=== PATIENT | female | born 1990 | race American Indian/Alaskan Native ===

== ENCOUNTER 2017-06-24 10:47 | Inpatient (IN) | payer MEDICAID ==
[2017-06-24] MEDS ORDERED: SUBLIMAZE IV PRN (11:26)
[2017-06-24] MEDS ORDERED: BRETHINE SUB-Q PRN (11:26)
[2017-06-24] MEDS ORDERED: XYLOCAINE 2% INFILTRATI ONE (11:26)
[2017-06-24] MEDS ORDERED: ePHEDrine SULFATE IV PRN (11:26)
[2017-06-24] MEDS ORDERED: POLYCILLIN/NS 2 GM/100 ML 2 GM/100 ML BAG IV ONE (11:26)
--- NOTE | 2017-06-24 11:35 | History and Physical Report ---
History of Present Illness Date of examination: 06/24/17 Date of admission: 06/24/17 Chief complaint: Active labor History of present illness: 26 year old presents at term in active labor. Patient denies leaking of fluid or vaginal bleeding. Patient reports active movement. Patient is GBS positive. Past History Past Medical History: other (anemia during (patient has been on iron supplements)) Past Surgical History: no surgical history [employer]CH[employer]ICIAN History: abnormal PAP smear (ASCUS, + HPV) Family/Genetic History: none Social history: lives with family. denies: smoking, alcohol abuse, prescription drug abuse, IV drug use - Obstetrical History Expected Date of Delivery: 07/03/17 Actual Gestation: 38 Week(s) 5 Day(s) : 3 Para: 2 Hx # Term Pregnancies: 3 Number of Pregnancies: 0 Spontaneous Abortions: 0 Induced : 0 Number of Living Children: 2 Medications and Allergies Allergies Allergy/AdvReac Type Severity Reaction Status Date / Time No Known Allergies Allergy Unverified 04/10/17 12:42 Home Medications Medication Instructions Recorded Confirmed Last Taken Type Pnv No.95/Ferrous Fum/Folic AC 325 tab PO BID 04/10/17 04/10/17 1 Day Ago History [ [place]] ~04/09/17 Active Meds: Active Medications Ephedrine Sulfate (Ephedrine Sulfate) 10 mg IV Q2M PRN PRN Reason: Hypotension Fentanyl (Sublimaze) 100 mcg IV Q2H PRN PRN Reason: Labor Pain Ampicillin Sodium (Polycillin/Ns 2 Gm/100 Ml) 2 gm in 100 mls @ 100 mls/hr IV ONCE ONE PRN Reason: Protocol Stop: 06/24/17 12:25 Lactated Ringer's (Lactated Ringers) 1,000 mls @ 125 mls/hr IV DIRECT ISIDRA Oxytocin/Sodium Chloride (Pitocin/Ns 20 Unit/1000ml Drip) 20 units in 1,000 mls @ 125 mls/hr IV DIRECT ISIDRA Lidocaine (Xylocaine 2%) 20 ml INFILTRATI ONCE ONE Stop: 06/24/17 11:27 Terbutaline Sulfate (Brethine) 0.25 mg SUB-Q ONCE PRN PRN Reason: Hyperstimulation/Hypertonicity Review of Systems All systems: negative (contractions) - Vital Signs Vital signs: Vital Signs Pulse BP 75 121/70 06/24/17 11:02 12/09/17 11:02 Temp Pulse Resp BP Pulse Ox 98.7 F 75 18 121/70 06/24/17 11:19 06/24/17 11:02 06/24/17 11:19 06/24/17 11:02 - Physical Exam Cardiovascular: Regular rate, Normal S1, Normal S2 Lungs: Positive: Clear to auscultation Abdomen: Positive: normal appearance, soft. Negative: distention, tenderness, guarding, rigidity Genitourinary (Female): Positive: normal external genitalia (no lesions seen on careful exam with bright light upon admission). Negative: perineal/vulvar lesions Vagina: Positive: normal moisture Uterus: Positive: enlarged Anus/Rectum: Positive: normal perianal skin Extremities: Positive: normal. Negative: tenderness, edema - Obstetrical FHR: category 1 Uterine Contraction Monitor Mode: External Uterine Contraction Pattern: Regular Uterine Contraction Intensity: Moderate Results Result Diagrams: 06/24/17 12:00 All other labs normal. Assessment and Plan A: at 38 weeks, 5 days gestation. Active labor. GBS positive. P: Admit. Ampicillin for GBS prophylaxis. Anticipate .
[2017-06-24] MEDS ORDERED: PITOCin/NS 20 UNIT/1000ML DRIP 20 UNITS/1,000 ML BAG IV SCH (12:00)
[2017-06-24] MEDS: LACTATED RINGERS 1,000 ML IV SCH ×2 (12:10→12:22)
[2017-06-24 12:40] LABS: Hematocrit 36.1 % (30.3-42.9); Hemoglobin 12.5 gm/dl (10.1-14.3); Mean Corpuscular HGB Conc 35 % (30-34); Mean Corpuscular Hemoglobin 30 pg (28-32); Mean Corpuscular Volume 87 fl (79-97); Platelet Count 213 K/mm3 (140-440); Red Blood Count 4.15 M/mm3 (3.65-5.03); Red Cell Distribution Width 14.4 % (13.2-15.2); White Blood Count 8.8 K/mm3 (4.5-11.0)
[2017-06-24] MEDS ORDERED: NARCAN 2 MG/2 ML IV PRN (13:58)
--- NOTE | 2017-06-24 13:58 | Anesthesia Consultation ---
Anesthesia Consult and Med Hx Date of service: 06/24/17 - Airway Anesthetic Teeth Evaluation: Good ROM Head & Neck: Adequate Mental/Hyoid Distance: Adequate Intubation Access Assessment: Probably Good - Pre-Operative Health Status ASA Pre-Surgery Classification: ASA2, Emergency Proposed Anesthetic Plan: Epidural, Spinal - Pulmonary Hx Asthma: No COPD: No Hx Pneumonia: No - Cardiovascular System Hx Hypertension: No - Central Nervous System Hx Seizures: No Hx Psychiatric Problems: No - Endocrine Hx Renal Disease: No Hx End Stage Renal Disease: No Hx Hypothyroidism: No Hx Hyperthyroidism: No - Hematic Hx Anemia: No Hx Sickle Cell Disease: No - Other Systems Hx Alcohol Use: No
[2017-06-24] MEDS ORDERED: fentaNYL-BUPIV 2 MCG/ML-0.125% 200 MCG/100 ML BAG EPIDURAL ONE (13:59)
[2017-06-24] MEDS: fentaNYL-BUPIV 2 MCG/ML-0.125% 200 MCG/100 ML BAG EPIDURAL SCH ×2 (14:20→14:50)
[2017-06-24] MEDS ORDERED: NORCO 5/325 PO PRN (14:55)
[2017-06-24] MEDS ORDERED: TUCKS PAD TP PRN (14:55)
[2017-06-24] MEDS ORDERED: MILK OF MAGNESIA PO PRN (14:55)
[2017-06-24] MEDS ORDERED: SODIUM CHLORIDE FLUSH SYRINGE 10 ML IV NR (15:00)
--- NOTE | 2017-06-24 15:03 | Procedure Note ---
OB Delivery Note - Delivery Date of Delivery: 06/24/17 Surgeon: ANALILIA ALVAREZ - Vaginal Delivery presentation: vertex Delivery position: OP Intrapartum events: none Delivery induction: none Delivery monitor: external FHT, external uterine Route of delivery: Delivery placenta: spontaneous Delivery cord: 3 umbilical vessels Episiotomy: none Delivery laceration: none Anesthesia: epidural Delivery comments: Spontaneous vaginal delivery of liveborn male infant weighing 6 lbs. 11 oz. over intact perineum with apgars of 8/9. Epidural anesthesia. Baby delivered easily and without difficulty. Thin meconium stained amniotic fluid. 3 vessel cord double clamped and cut and baby taken to radiant warmer and NICU team for suctioning due to meconium. Spontaneous cry and respirations. Cord blood obtained. Spontaneous delivery of intact placenta and membranes by ordoñez mechanism. EBL 250 ml. Pitocin to IV fluids after delivery of placenta. Fundus firm and midline. Vaginal sweep negative. No lacerations of vulva or perineum or vagina noted. Sponge count correct. Mother and baby stable in birthing room.
[2017-06-24] MEDS ORDERED: POLYCILLIN/NS 1 GM/50 ML 1 GM/50 ML BAG IV SCH (15:30)
[2017-06-24] MEDS: MOTRIN PO SCH ×2 (17:30→23:43)
[2017-06-24] MEDS ORDERED: PHENERGAN PO ONE (18:00)
[2017-06-25] MEDS: MOTRIN PO SCH ×4 (05:04→23:38)
[2017-06-25 05:49] LABS: Hematocrit 34.6 % (30.3-42.9); Hemoglobin 11.9 gm/dl (10.1-14.3)
--- NOTE | 2017-06-25 12:23 | Progress Note ---
Assessment and Plan A: day 1 S/P liveborn male infant. Anemia. P: Supplement with iron. Anticipate discharge to home tomorrow AM. Discussed with patient in detail discharge instructions and warning signs. Advised patient to continue the vitamins and iron she has at home. Advised pt. to avoid driving, avoid lifting and housework and avoid IC. Advised pt. to follow up at [facility]. Pt. voiced understanding of the above instructions. Subjective - Subjective Date of service: 06/25/17 Principal diagnosis: day 1 S/P spontaneous vaginal delivery Interval history: day 1 S/P spontaneous vaginal delivery of liveborn male . Patient states she is doing well. She reports small amount of lochia with no large clots. She is voiding without difficulty and ambulating well. She is tolerating a regular diet without nausea or vomiting. Patient denies headache, cough, shortness of breath, chest pain, abdominal pain, nausea or vomiting, leg pain, heavy vaginal bleeding, symptoms of depression, or any other problems. Patient wants to use Depo Provera for contraception on day of discharge. Patient reports: appetite normal, voiding normally, pain well controlled, flatus , ambulating normally : doing well Objective - Vital Signs Latest vital signs: Vital Signs Temp Pulse Resp BP BP Pulse Ox 06/25/17 08:08 98.7 F 85 18 110/74 99 06/25/17 00:54 69 115/66 97 06/25/17 00:00 98.1 F 67 18 115/66 96 06/24/17 20:20 98.4 F 71 18 116/64 98 06/24/17 16:00 98.5 F 18 116/69 06/24/17 15:32 82 130/73 06/24/17 15:18 88 135/74 06/24/17 15:03 96 H 133/60 06/24/17 14:57 86 100 06/24/17 14:56 88 127/60 06/24/17 14:44 92 H 101/54 06/24/17 14:28 106 H 158/66 06/24/17 14:26 103 H 168/100 06/24/17 14:24 103 H 122/82 06/24/17 14:22 88 118/79 06/24/17 14:20 73 127/73 06/24/17 14:18 88 126/74 06/24/17 14:16 83 123/78 06/24/17 14:14 89 119/79 06/24/17 14:12 96 H 124/73 06/24/17 14:11 87 120/69 06/24/17 14:08 93 H 113/57 06/24/17 14:06 90 111/57 06/24/17 14:04 90 120/63 06/24/17 14:02 85 117/60 06/24/17 14:00 81 120/64 06/24/17 13:59 69 78 L 06/24/17 13:58 89 119/65 06/24/17 13:56 83 120/64 06/24/17 13:53 81 117/64 100 06/24/17 13:50 61 31 L 06/24/17 13:49 92 H 100 06/24/17 13:44 93 H 100 06/24/17 13:39 105 H 100 06/24/17 13:38 109 H 149/72 06/24/17 12:49 18 Intake and Output 06/24/17 06/25/17 06/25/17 23:59 07:59 15:59 Intake Total 240 480 Output Total 750 300 Balance -510 180 Intake: Oral 240 480 Output: Urine 400 300 Void 400 300 Emesis 350 Other: Total, Intake Amount 240 240 Total, Output Amount 400 300 # Voids Void 1 1 - Exam Cardiovascular: Present: Regular rate, Normal S1, Normal S2 Lungs: Present: Clear to auscultation Abdomen: Present: normal appearance, soft, normal bowel sounds. Absent: distention, tenderness, guarding, rigidity Uterus: Present: firm, fundal height below umbilicus. Absent: bogginess, tenderness Extremities: Present: normal. Absent: tenderness, edema - Labs Labs: Abnormal lab results 06/24/17 Range/Units 12:00 MCHC 35 H (30-34) %
--- NOTE | 2017-06-25 12:39 | Discharge Summary ---
Providers - Providers Date of Admission: 06/24/17 12:04 Date of discharge: 06/26/17 Attending physician: TERRANCE WALKER MD None Primary care physician: TERRANCE WALKER MD Hospitalization Reason for admission: active labor Delivery: Episiotomy: none Laceration: none Other procedures: none complications: none Discharge diagnosis: IUP at term delivered baby: male Pertinent studies: Labs Hospital course: Normal hospital course. Condition at discharge: Good Disposition: DC-01 TO HOME OR SELFCARE Plan - Provider Discharge Summary Activity: routine, no sex for 6 weeks, no heavy lifting 4 weeks, no strenuous exercise Diet: routine Instructions: routine Additional instructions: Call your doctor immediately for: * Fever > 100.5 * Heavy vaginal bleeding ( >1 pad per hour) * Severe persistent headache * Shortness of breath * Reddened, hot, painful area to leg or breast - Follow up plan Follow up: TERRANCE WALKER MD [Primary Care Provider] - 6 Weeks
[2017-06-25] MEDS ORDERED: DEPO-PROVERA (CONTRACEPTION) IM ONE (13:35)
[2017-06-26] MEDS: MOTRIN PO SCH (04:58)
[2017-06-26 15:28] VITALS: BP 117/86
== END 2017-06-26 16:00 | disposition home or self-care (01) | DRG 775 ==
LOC: TRG 10:47 → LD 12:04 → OB 16:23
PROVIDERS: ADMIT Obstetrics & Gynecology; ATTEND Obstetrics & Gynecology
PROC: 10E0XZZ Delivery of Products of Conception, External Approach (ICD-10-PCS; principal; 2017-06-24)
PROC: 3E0R3BZ Introduction of Anesthetic Agent into Spinal Canal, Percutaneous Approach (ICD-10-PCS; 2017-06-24)
PROC: 00HU33Z Insertion of Infusion Device into Spinal Canal, Percutaneous Approach (ICD-10-PCS; 2017-06-24)
PROC: 30233S1 Transfusion of Nonautologous Globulin into Peripheral Vein, Percutaneous Approach (ICD-10-PCS; 2017-06-25)
DX: O99.824 Streptococcus B carrier state complicating childbirth (principal); Z3A.38 38 weeks gestation of pregnancy; Z37.0 Single live birth; D64.9 Anemia, unspecified; O77.0 Labor and delivery complicated by meconium in amniotic fluid; O90.81 Anemia of the puerperium
CPT/HCPCS: 36415; 85014; 85018; 85027; 85461; 86850; 86900; 86901; 99211; G0463; J0290; J2590; J2790; J3010; J7120; Q0169

== ENCOUNTER 2017-07-18 09:58 | Emergency (ER) | payer MEDICAID ==
--- NOTE | 2017-07-18 11:38 | XRay Report ---
LEFT HAND, 3 views: History: Left hand pain. The bony architecture is intact. Bony alignment is normal. No soft tissue abnormalities are seen. The joint spaces appear preserved. IMPRESSION: Normal left hand.
--- NOTE | 2017-07-18 12:25 | Emergency Department Report ---
ED Upper Extremity Inj HPI - General Chief Complaint: Extremity Problem,Nontraumatic Stated Complaint: HAND PAIN Time Seen by Provider: 07/18/17 11:20 Source: patient Mode of arrival: Ambulatory Limitations: No Limitations - History of Present Illness Initial Comments: This is a 27-year-old female nontoxic, well nourished in appearance, no acute signs of distress presents to the ED with c/o of left wrist tingling and pain and radiates to thumb region. Patient denies any trauma to the region. 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 Patient denies any fever, chills, nausea, vomiting, chest pain, short of breath, headache or stiff neck. Patient denies any joint redness or joint swelling. Patient denies sensory loss or nocturnal symptoms. Denies any allergies or past medical history. MD Complaint: Injury to:: left, wrist, finger -: days(s) Other Extremity Injury: Fingers: Left (thumb), Wrist: Left Other Injuries: none Severity scale (0 -10): 8 Improves With: none Worsens With: none Associated Symptoms: denies other symptoms. denies: weakness, numbness, neck pain, suspects foreign body, nausea/vomiting, heard/felt popping sensat - Related Data Home Medications Medication Instructions Recorded Confirmed Last Taken Vit,Calc76/Iron/Folic 1 tab PO DAILY 06/25/17 06/25/17 1 Day Ago [Pnv 29-1 Tablet] ~06/24/17 Valacyclovir HCl [Valtrex] 1,000 mg PO DAILY 06/25/17 06/25/17 1 Day Ago ~06/24/17 Previous Rx's Medication Instructions Recorded Last Taken Type Ibuprofen [Motrin] 600 mg PO Q8H PRN #30 tablet 07/18/17 Unknown Rx predniSONE [Deltasone] 40 mg PO DAILY #5 tab 07/18/17 Unknown Rx Allergies Allergy/AdvReac Type Severity Reaction Status Date / Time No Known Allergies Allergy Unverified 04/10/17 12:42 ED Review of Systems ROS: Stated complaint: HAND PAIN Other details as noted in HPI Constitutional: denies: chills, fever Eyes: denies: eye pain, eye discharge, vision change ENT: denies: ear pain, throat pain Respiratory: denies: cough, shortness of breath, wheezing Cardiovascular: denies: chest pain, palpitations Endocrine: no symptoms reported Gastrointestinal: denies: abdominal pain, nausea, diarrhea Genitourinary: denies: urgency, dysuria, discharge Musculoskeletal: denies: back pain, joint swelling, arthralgia Skin: denies: rash, lesions Neurological: denies: headache, weakness, paresthesias Psychiatric: denies: anxiety, depression Hematological/Lymphatic: denies: easy bleeding, easy bruising ED Past Medical Hx - Past Medical History Hx Hypertension: No Hx Congestive Heart Failure: No Hx Diabetes: No Hx Deep Vein Thrombosis: No Hx Renal Disease: No Hx Sickle Cell Disease: No Hx Seizures: No Hx Asthma: No Hx COPD: No Hx HIV: No - Social History Smoking Status: Never Smoker - Medications Home Medications: Home Medications Medication Instructions Recorded Confirmed Last Taken Type Vit,Calc76/Iron/Folic 1 tab PO DAILY 06/25/17 06/25/17 1 Day Ago History [Pnv 29-1 Tablet] ~06/24/17 Valacyclovir HCl [Valtrex] 1,000 mg PO DAILY 06/25/17 06/25/17 1 Day Ago History ~06/24/17 Ibuprofen [Motrin] 600 mg PO Q8H PRN #30 tablet 07/18/17 Unknown Rx predniSONE [Deltasone] 40 mg PO DAILY #5 tab 07/18/17 Unknown Rx ED Physical Exam - General Limitations: No Limitations General appearance: alert, in no apparent distress - Head Head exam: Present: atraumatic, normocephalic - Eye Eye exam: Present: normal appearance - ENT ENT exam: Present: mucous membranes moist - Neck Neck exam: Present: normal inspection - Respiratory Respiratory exam: Present: normal lung sounds bilaterally. Absent: respiratory distress - Cardiovascular Cardiovascular Exam: Present: regular rate, normal rhythm. Absent: systolic murmur, diastolic murmur, rubs, gallop - GI/Abdominal GI/Abdominal exam: Present: soft, normal bowel sounds - Extremities Exam Extremities exam: Present: normal inspection, full ROM, normal capillary refill. Absent: tenderness, pedal edema, joint swelling, calf tenderness - Expanded Upper Extremity Exam Left General: Present: normal inspection Shoulder Exam: Present: normal inspection, full ROM Upper Arm exam: Present: normal inspection, full ROM Elbow exam: Present: normal inspection, full ROM Forearm Wrist exam: Present: normal inspection, full ROM Hand Wrist exam: Present: normal inspection, full ROM, tenderness, other ( Positive phalen maneuver and tinel test). Absent: swelling, abrasion, laceration, ecchymosis, deformity, crepidus, dislocation, erythema, amputation, nail avulsion, subungual hematoma Neuro motor exam: Present: wrist extension intact, thumb opposition intact, thumb IP flexion intact, thumb adduction intact, fingers 2-5 abduction intact Neurosensory exam: Present: 2-point discrimination, radial nerve intact, ulnar nerve intact, median nerve intact Vascular: Present: vascular compromise, normal capillary refill, radial pulse, brachial pulse, ulnar pulse - Back Exam Back exam: Present: normal inspection, full ROM. Absent: tenderness, CVA tenderness (R), CVA tenderness (L), muscle spasm, paraspinal tenderness, vertebral tenderness, rash noted - Neurological Exam Neurological exam: Present: alert, oriented X3, CN II-XII intact, normal gait, reflexes normal - Psychiatric Psychiatric exam: Present: normal affect, normal mood - Skin Skin exam: Present: warm, dry, intact, normal color. Absent: rash ED Course Vital Signs 07/18/17 11:33 Temperature 97.9 F Pulse Rate 80 Respiratory 16 Rate Blood Pressure 122/78 [Right] O2 Sat by Pulse 98 Oximetry - Reevaluation(s) Reevaluation #1: 07/18/17 12:31 Patient is speaking in full sentences with no signs of distress noted. ED Medical Decision Making - Medical Decision Making This is a 27-year-old female that presents with carpal tunnel syndrome. Patient is stable and was examined by me. Xray has been obtained and dictated by radiologist with normal exam. Patient is notified of xray results with no questions noted by the patient. There is no joint swelling or joint redness. No signs of cellulitis. There is a possive tinel test and phalen maneuver which suggests of carpal tunnel. Upon evaluation and clinical symptoms this is a mild CTS and graded as class 1. There is no loss of sensory or nocturnal symptoms. Patient received 10 mg of decadron and motrin in the ED. Patient also received a Velcro wrist splint. Patient is discharged with Motrin and prednisone. Patient was instructed Follow-up with a orthopedic doctor/primary care doctor in 3-5 days or if symptoms worsen and continue return to emergency room as soon as possible. At time time of discharge, the patient does not seem toxic or ill in appearance. No acute signs of distress noted. Patient agrees to discharge treatment plan of care. No further questions noted by the patient. Critical care attestation.: If time is entered above; I have spent that time in minutes in the direct care of this critically ill patient, excluding procedure time. ED Disposition Clinical Impression: Carpal tunnel syndrome Qualifiers: Laterality: left Qualified Code(s): G56.02 - Carpal tunnel syndrome, left upper limb Disposition: - TO HOME OR SELFCARE Is pt being admited?: No Does the pt Need Aspirin: No Condition: Stable Instructions: Ibuprofen (By mouth), Prednisone (By mouth), Carpal Tunnel Syndrome (ED) Additional Instructions: Follow-up with a orthopedic doctor/primary care doctor in 3-5 days or if symptoms worsen and continue return to emergency room as soon as possible. Prescriptions: Ibuprofen [Motrin] 600 mg PO Q8H PRN #30 tablet PRN Reason: Pain predniSONE [Deltasone] 40 mg PO DAILY #5 tab Referrals: JOSE WASSERMAN MD [Primary Care Provider] - 3-5 Days PRIMARY CARE, [Referring] - 3-5 Days FRANKLYN STAPLETON MD [Staff Physician] - 3-5 Days [facility] [place] [Outside] - 3-5 Days [facility] [Outside] - 3-5 Days Forms: Work/School Release Form(ED)
[2017-07-18 12:34] VITALS: BP 122/78
[2017-07-18] MEDS ORDERED: DECADRON IM ONE (12:39)
[2017-07-18] MEDS ORDERED: MOTRIN PO ONE (12:39)
== END 2017-07-18 13:13 | disposition home or self-care (01) ==
LOC: ED 09:58
DX: G56.02 Carpal tunnel syndrome, left upper limb (principal); X50.3XXA Overexertion from repetitive movements, initial encounter; Y93.89 Activity, other specified; Y92.89 Other specified places as the place of occurrence of the external cause; Y99.8 Other external cause status
CPT/HCPCS: 29125; 73130; 96372; 99283; J1100

== ENCOUNTER 2017-08-12 10:59 | Emergency (ER) | payer MEDICAID ==
[2017-08-12 13:58] VITALS: BP 143/91
--- NOTE | 2017-08-12 14:45 | Emergency Department Report ---
- General Chief Complaint: Upper Respiratory Infection Stated Complaint: FLU LIKE SYMPTOMS Time Seen by Provider: 08/12/17 14:15 Source: patient Mode of arrival: Ambulatory Limitations: No Limitations - History of Present Illness Initial Comments: Ms. Castañeda presents with cough and runny nose for several days. She is here with her 7 week male infant who is also being evaluated for fever. She has mild chest discomfort. Mildly productive cough. Generalized malaise. No other symptoms. - Related Data Home Medications Medication Instructions Recorded Confirmed Last Taken Vit,Calc76/Iron/Folic 1 tab PO DAILY 06/25/17 06/25/17 1 Day Ago [Pnv 29-1 Tablet] ~06/24/17 Valacyclovir HCl [Valtrex] 1,000 mg PO DAILY 06/25/17 06/25/17 1 Day Ago ~06/24/17 Previous Rx's Medication Instructions Recorded Last Taken Type Ibuprofen [Motrin] 600 mg PO Q8H PRN #30 tablet 07/18/17 Unknown Rx predniSONE [Deltasone] 40 mg PO DAILY #5 tab 07/18/17 Unknown Rx Allergies Allergy/AdvReac Type Severity Reaction Status Date / Time No Known Allergies Allergy Unverified 04/10/17 12:42 ED Review of Systems ROS: Stated complaint: FLU LIKE SYMPTOMS Other details as noted in HPI Comment: All other systems reviewed and negative Constitutional: malaise. denies: chills, fever ED Past Medical Hx - Past Medical History Hx Hypertension: No Hx Congestive Heart Failure: No Hx Diabetes: No Hx Deep Vein Thrombosis: No Hx Renal Disease: No Hx Sickle Cell Disease: No Hx Seizures: No Hx Asthma: No Hx COPD: No Hx HIV: No - Social History Smoking Status: Never Smoker Substance Use Type: Alcohol - Medications Home Medications: Home Medications Medication Instructions Recorded Confirmed Last Taken Type Vit,Calc76/Iron/Folic 1 tab PO DAILY 06/25/17 06/25/17 1 Day Ago History [Pnv 29-1 Tablet] ~06/24/17 Valacyclovir HCl [Valtrex] 1,000 mg PO DAILY 06/25/17 06/25/17 1 Day Ago History ~06/24/17 Ibuprofen [Motrin] 600 mg PO Q8H PRN #30 tablet 07/18/17 Unknown Rx predniSONE [Deltasone] 40 mg PO DAILY #5 tab 01/02/18 Unknown Rx ED Physical Exam - General Limitations: No Limitations General appearance: alert, in no apparent distress - Head Head exam: Present: atraumatic, normocephalic - Eye Eye exam: Present: normal appearance - ENT ENT exam: Present: normal orophraynx, mucous membranes moist - Neck Neck exam: Present: normal inspection - Respiratory Respiratory exam: Present: normal lung sounds bilaterally. Absent: respiratory distress, wheezes, rales, rhonchi - Cardiovascular Cardiovascular Exam: Present: regular rate, normal rhythm, normal heart sounds. Absent: systolic murmur, diastolic murmur, rubs, gallop - GI/Abdominal GI/Abdominal exam: Present: soft, normal bowel sounds. Absent: distended, tenderness, guarding, rebound - Extremities Exam Extremities exam: Present: normal inspection - Back Exam Back exam: Present: normal inspection - Neurological Exam Neurological exam: Present: alert, oriented X3 - Psychiatric Psychiatric exam: Present: normal affect, normal mood - Skin Skin exam: Present: warm, dry, intact, normal color. Absent: rash ED Course Vital Signs 08/12/17 13:54 Temperature 99.5 F Pulse Rate 83 Respiratory 16 Rate Blood Pressure 143/91 O2 Sat by Pulse 98 Oximetry ED Medical Decision Making - Medical Decision Making Ms. Castañeda presents with acute upper respiratory illness. Influenza negative. Recommended supportive care. With clear breath sounds do not suspect pneumonia. Critical care attestation.: If time is entered above; I have spent that time in minutes in the direct care of this critically ill patient, excluding procedure time. ED Disposition Clinical Impression: Upper respiratory infection Disposition: -01 TO HOME OR SELFCARE Is pt being admited?: No Does the pt Need Aspirin: No Condition: Stable Instructions: Upper Respiratory Infection (ED) Referrals: PRIMARY CARE, [Primary Care Provider] - 3-5 Days Time of Disposition: 18:14
== END 2017-08-12 20:00 | disposition home or self-care (01) ==
LOC: ED 10:59
DX: J06.9 Acute upper respiratory infection, unspecified (principal)
CPT/HCPCS: 87400; 99282